=== PATIENT | male | born 1975 | race Caucasian/White ===

== ENCOUNTER → 2021-04-19 | Outpatient (CLI) | payer BC, OTHER ==
--- NOTE | 2021-04-28 19:32 | SLE ---
[facility] [place] [address] POLYSOMNOGRAPHY STUDY Name: VIANCA DEL CID Room #: REG RADHA Stanley.#: [id number] Admission: 04/19/21 Attend Phys: Grant Irwin MD Discharge: Date of : 73 Report #: [id number] THIS REPORT FOR: cc: JESSICA - Family physician unknown JESSICA - Family physician unknown Rodrigo Borges MD ~ cc: Grant Irwin MD DATE OF SERVICE: 04/19/2021 HOME SLEEP STUDY ATTENDING PHYSICIAN: Dr. Grant Irwin. The patient is a 45-year-old who weighs 269 pounds with a BMI of 35.5. The patient's [facility] score was 10. The patient underwent home sleep study performed by [facility]. Total recording time was 487 minutes. During the night study, the patient had 2 obstructive apneas, 1 central apnea, no mixed apneas and 46 hypopneas. The patient's AHI was 6.3 per hour with a supine AHI of 19 per hour. Nocturnal oximetry study revealed an average oxygen saturation of 93% with lowest of 86%. 19 minutes were spent with oxygen saturation less than 90%. Mean heart rate 62 beats per minute with a maximum of 78 beats per minute. IMPRESSION: 1. Mild obstructive sleep apnea with moderate increase during supine sleep. Total AHI 6.3 per hour with a supine AHI of 19 per hour. 2. Nocturnal hypoxia secondary to obstructive sleep apnea. RECOMMENDATIONS: 1. The patient has mild sleep apnea, which is mostly positional. I would recommend weight loss as well as avoidance of supine sleep as the initial form of treatment. 2. If the patient remains symptomatic or has comorbid conditions, then consider treatment of sleep apnea with either CPAP versus oral appliance. 3. Avoid [employer] depressants. 4. Cautioned regarding driving until the patient's hypersomnia is resolved with the above recommendations. <ELECTRONICALLY SIGNED> By: Rodrigo Borges MD 04/28/21 [id number] Rodrigo Borges MD /nt
== END ==
LOC: SLEEPLAB 13:16
PROVIDERS: ATTEND Internal Medicine Pulmonary Disease
DX: G47.33 Obstructive sleep apnea (adult) (pediatric) (principal); R09.02 Hypoxemia